=== PATIENT | male | born 1940 | race Caucasian/White ===

== ENCOUNTER 2016-12-06 07:46 | Day surgery (SDC) | payer MEDICARE, BC ==
[~2016-12-06] VITALS: Ht 180.3 cm; Wt 94.5 kg
[2016-12-06] VITALS (13 sets, daily range): BP systolic 137–159; BP diastolic 58–94; PULSE 57–71; TEMP 98.4–98.7
[2016-12-06] MEDS ORDERED: NORVASC 10MG10 MG PO (08:40)
[2016-12-06] MEDS ORDERED: PRINIVIL20 MG PO (08:40)
[2016-12-06] MEDS ORDERED: COLESTID 1GM1 G PO (08:41)
[2016-12-06 08:42] LABS: HEMATOCRIT 46.7 % (42.0-52.0); HEMOGLOBIN 16.2 g/dl (13.5-18.0); MEAN CELL VOLUME 90 fl (80.0-100.0); MEAN CORPUSCULAR HEMOGLOBIN 31 pg (27.0-31.0); MEAN CORPUSCULAR HGB CONC 35 g/dl (33.0-37.0); MEAN PLATELET VOLUME 10.7 fl (7.4-10.4); PLATELET COUNT 351 K/mm3 (130-400); RED BLOOD COUNT 5.22 M/mm3 (4.20-5.60); REDCELL DISTRIBUTION WIDTH-CV 12.1 % (11.5-14.5); WHITE BLOOD COUNT 7.3 K/mm3 (4.8-10.8)
[2016-12-06] MEDS ORDERED: XALATAN EYE DROPS OU (08:43)
[2016-12-06 08:48] LABS: INR 1.1 (0.8-3.0); PROTHROMBIN TIME 11.7 SECONDS (9.7-12.8)
[2016-12-06 09:03] LABS: CALCIUM 9.9 mg/dL (8.4-10.2); CREATININE, serum 0.99 mg/dL (0.66-1.25); POTASSIUM 4.6 mmol/L (3.4-5.0)
== END 2016-12-06 14:59 | disposition home or self-care (01) ==
LOC: COL.CAR 07:46
PROVIDERS: Internal Medicine Cardiovascular Disease
DX: I10 Essential (primary) hypertension (principal); I25.10 Atherosclerotic heart disease of native coronary artery without angina pectoris; K21.9 Gastro-esophageal reflux disease without esophagitis; Z86.2 Personal history of diseases of the blood and blood-forming organs and certain disorders involving the immune mechanism
CPT/HCPCS: C1760; C1769; C1894; J2250; J3010; Q9967